=== PATIENT | female | born 1970 | race Caucasian/White ===

== ENCOUNTER 2017-07-01 17:16 | Emergency (ER) | payer MEDICAID ==
[~2017-07-01] VITALS: Ht 157.5 cm; Wt 63.5 kg
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
--- NOTE | 2017-07-01 18:40 | NUR ---
[employer] AT BEDSIDE.
--- NOTE | 2017-07-01 18:40 | NUR ---
CALLED [employer] NON EMERGENCY DISPATCH.
--- NOTE | 2017-07-01 18:42 | NUR ---
[employer] AT PATIENT BEDSIDE.
--- NOTE | 2017-07-01 19:08 | NUR ---
RECEIVED REPORT FROM MARINO RUBIN PT APPEARS COMFORTABLE.
[2017-07-01 20:30] VITALS: BP 124/77
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
== END 2017-07-01 20:34 ==
LOC: ER 17:19
DX: T74.21XA Adult sexual abuse, confirmed, initial encounter (principal); Y92.89 Other specified places as the place of occurrence of the external cause
CPT/HCPCS: 99283; A4606; Z7610